=== PATIENT | male | born 1965 | race Caucasian/White ===

== ENCOUNTER 2023-12-11 13:54 | Outpatient (RCR) | payer OTHER, SELFPAY ==
[2023-12-11] MEDS: NSS 250 IV (14:16)
[2023-12-11 14:22] VITALS: BP 152/75
[2023-12-11] MEDS: ENTYVIO 255 MG IV (14:34)
== END 2023-12-12 08:56 | disposition home or self-care (01) ==
LOC: OID 13:54
PROVIDERS: ATTENDING PHYSICIAN Internal Medicine Gastroenterology
DX: K50.10 Crohn's disease of large intestine without complications (principal); N18.6 End stage renal disease; Z94.0 Kidney transplant status; Z79.899 Other long term (current) drug therapy
CPT/HCPCS: 96361; 96365; J3380

== ENCOUNTER 2024-02-07 13:49 | Outpatient (RCR) | payer OTHER, SELFPAY ==
[2024-02-07 14:00] VITALS: BP 151/95
[2024-02-07] MEDS: NSS 250 IV (14:21)
[2024-02-07] MEDS: ENTYVIO 255 MG IV (14:25)
[2024-02-07 16:21] VITALS: BMI 29.9
== END 2024-02-08 09:50 | disposition home or self-care (01) ==
LOC: OID 13:49
PROVIDERS: ATTENDING PHYSICIAN Internal Medicine Gastroenterology
DX: K50.90 Crohn's disease, unspecified, without complications (principal); N18.6 End stage renal disease; K50.10 Crohn's disease of large intestine without complications; Z94.0 Kidney transplant status; Z79.899 Other long term (current) drug therapy
CPT/HCPCS: 96361; 96365; J3380

== ENCOUNTER → 2024-02-14 20:12 | Outpatient (REF) | payer OTHER, SELFPAY | LOC: MRI 3T 20:12 | PROVIDERS: ATTENDING PHYSICIAN Specialist | DX: R97.20 Elevated prostate specific antigen [PSA] (principal) | CPT/HCPCS: 72197; A9585 ==

== ENCOUNTER 2024-04-03 13:42 | Outpatient (RCR) | payer OTHER, SELFPAY ==
[2024-04-03] MEDS: ENTYVIO 255 MG IV (14:06)
[2024-04-03] MEDS: NSS 250 IV (14:06)
[2024-04-03 14:18] VITALS: BP 131/79
== END 2024-04-04 10:40 | disposition home or self-care (01) ==
LOC: OID 13:42
PROVIDERS: ATTENDING PHYSICIAN Internal Medicine Gastroenterology
DX: K50.90 Crohn's disease, unspecified, without complications (principal); N18.6 End stage renal disease; K50.10 Crohn's disease of large intestine without complications; Z94.0 Kidney transplant status; Z79.899 Other long term (current) drug therapy
CPT/HCPCS: 96365; J3380

== ENCOUNTER 2024-05-29 13:43 | Outpatient (RCR) | payer OTHER, SELFPAY ==
[2024-05-29 13:55] VITALS: BP 154/86
[2024-05-29] MEDS: ENTYVIO 255 MG IV (14:16)
[2024-05-29] MEDS: NSS 250 IV (14:16)
== END 2024-05-30 08:23 | disposition home or self-care (01) ==
LOC: OID 13:43
PROVIDERS: ATTENDING PHYSICIAN Internal Medicine Gastroenterology
DX: K50.90 Crohn's disease, unspecified, without complications (principal); N18.6 End stage renal disease; K50.10 Crohn's disease of large intestine without complications; Z94.0 Kidney transplant status; Z79.899 Other long term (current) drug therapy
CPT/HCPCS: 96361; 96365; J3380

== ENCOUNTER 2024-07-24 13:24 | Outpatient (RCR) | payer OTHER, SELFPAY ==
[2024-07-24 13:33] VITALS: BP 144/80
[2024-07-24] MEDS: ENTYVIO 255 MG IV (13:47)
[2024-07-24] MEDS: NSS 250 IV (13:47)
== END 2024-07-25 09:13 | disposition home or self-care (01) ==
LOC: OID 13:24
PROVIDERS: ATTENDING PHYSICIAN Internal Medicine Gastroenterology
DX: K50.90 Crohn's disease, unspecified, without complications (principal); N18.6 End stage renal disease; K50.10 Crohn's disease of large intestine without complications; Z94.0 Kidney transplant status; Z79.899 Other long term (current) drug therapy
CPT/HCPCS: 96365; J3380

== ENCOUNTER 2024-09-18 13:38 | Outpatient (RCR) | payer OTHER, SELFPAY ==
[2024-09-18] MEDS: ENTYVIO 255 MG IV (14:06)
[2024-09-18] MEDS: NSS 250 IV (14:06)
[2024-09-18 14:17] VITALS: BP 140/82
== END 2024-09-19 09:20 | disposition home or self-care (01) ==
LOC: OID 13:38
PROVIDERS: ATTENDING PHYSICIAN Internal Medicine Gastroenterology
DX: K50.90 Crohn's disease, unspecified, without complications (principal); N18.6 End stage renal disease; K50.10 Crohn's disease of large intestine without complications; Z94.0 Kidney transplant status; Z79.899 Other long term (current) drug therapy
CPT/HCPCS: 96360; 96361; 96365; J3380

== ENCOUNTER 2024-11-13 13:43 | Outpatient (RCR) | payer OTHER, SELFPAY ==
[2024-11-13 13:45] VITALS: BP 141/76
[2024-11-13] MEDS: ENTYVIO 255 MG IV (14:21)
[2024-11-13] MEDS: NSS 250 IV (14:21)
== END 2024-11-14 09:34 | disposition home or self-care (01) ==
LOC: OID 13:43
PROVIDERS: ATTENDING PHYSICIAN Internal Medicine Gastroenterology
DX: K50.90 Crohn's disease, unspecified, without complications (principal); N18.6 End stage renal disease; K50.10 Crohn's disease of large intestine without complications; Z94.0 Kidney transplant status; Z79.899 Other long term (current) drug therapy
CPT/HCPCS: 96361; 96365; J3380

== ENCOUNTER 2024-12-10 00:19 | Observation (INO) | payer OTHER, SELFPAY ==
[2024-12-09 19:50] VITALS: BP 121/84
[2024-12-09 20:12] LABS: % Basophils 0.2 % (0-2); % Eosinophils 0.2 % (0-6); % Immature Granulocytes 0.7 % (0-0.5); % Lymphocytes 34.8 % (20.5-51.1); % Monocytes 8.4 % (1.7-9.3); % Neutrophils 55.7 % (42.2-75.2); Absolute Lymphocytes 1.9 10^3/uL (1.2-3.4); Absolute Monocytes 0.5 10^3/uL (0.1-0.6); Hematocrit 28.2 % (39.0-52.0); Hemoglobin 9.8 g/dL (13.0-18.0); Mean Corp Hgb Conc. 34.8 g/dL (33.0-37.0); Mean Corpuscular Hgb 30.3 pg (27.0-31.0); Mean Corpuscular Volume 87.3 fL (80.0-94.0); Mean Platelet Volume 9.1 fL (7.4-10.4); Nucleated Red Blood Cells % 0 % (-); Platelet Count 195 10^3/uL (130-400); Red Blood Cell Count 3.23 10^6/uL (4.70-6.10); Red Cell Dist. Width 12.3 % (11.5-14.5); White Blood Cell Count 5.5 10^3/uL (4.8-10.8)
[2024-12-09 20:25] LABS: ALT (SGPT) 21 U/L (0-50); AST (SGOT) 27 U/L (17-59); Alkaline Phosphatase 85 U/L (38-126); Blood Urea Nitrogen 55 mg/dl (9-20); Calcium 8.9 mg/dl (8.4-10.2); Carbon Dioxide 21 mmol/L (22-30); Chloride 100 mmol/L (98-107); Glucose 220 mg/dl (70-99); Potassium 4.7 mmol/L (3.5-5.1); Sodium 132 mmol/L (135-145); Total Bilirubin 0.5 mg/dl (0.2-1.3); Total Protein 6.5 g/dl (6.3-8.2); eGFR 28.52
[2024-12-09 20:28] LABS: COVID-19 Antigen Negative (Negative)
--- NOTE | 2024-12-09 21:27 | ED.GENMED ---
History of Present Illness
General
Chief Complaint: Cold/Flu/URI Symptoms
Time Seen by Provider: 12/09/24 21:26
History of Present Illness
History of Present Illness:
TIME OF INITIAL ENCOUNTER: 9:40 PM
HPI: The patient presents with general unwell feeling, fatigue, some degree of shortness of breath, and chills. He has a history of renal transplant versus risk in 2007 and is more recently been managed for prostate cancer. He had COVID over a
month ago and then 2 weeks ago developed URI symptoms along with the other symptoms listed above. He had outpatient blood work that showed a lower than normal hemoglobin with low iron levels and was sent here for further evaluation.
EXAM:
GENERAL: Appears generally weak and debilitated, room air sats 98% with good waveform
HEENT: Slightly dry oral mucosa
CARDIOVASCULAR: No murmurs, normal heart rate, regular rhythm, No chest wall tenderness
PULMONARY: No respiratory distress, breath sounds are clear and equal
ABDOMEN: Soft with no peritoneal signs, no tenderness
NEUROLOGIC: Fair strength all extremities, no coordination deficits
PSYCHIATRIC: Appropriate mental status, normal insight and judgement
EXTREMITIES: Nontender, no edema, moves all extremities equally
SKIN: No rash, no lesions
NUMBER AND COMPLEXITY OF PROBLEMS ADDRESSED AT THE ENCOUNTER
� Chronic conditions affecting care: Kidney transplant, prostate cancer, high blood pressure, Crohn's, 'steroid-induced diabetes'
� Acute Exacerbation and/or Progression of Chronic Illness: This is an acute problem
� Differential Diagnosis includes: viral syndrome, bacteremia, pneumonia,Anemia
AMOUNT AND/OR COMPLEXITY OF DATA TO BE REVIEWED AND ANALYZED
� I performed an independent evaluation of and my interpretation is:
EKG:
CT:
X-rays: I personally viewed chest x-ray and see no clear sign of pneumonia
Laboratory Studies: White count 5.5, hemoglobin 9.8, BUN 55, creatinine 2.5, urinalysis shows no sign of infection, lactic 1.5
Other:
� Review of other/old records: Creatinine in 2022 was 1.5, hemoglobin was 11.1 in January 2023
� Clinical information was obtained by an independent historian: I spoke to at bedside
� Prescriptions/Medications Considered but not given:
� Further testing considered but not performed:
RISK OF COMPLICATIONS AND/OR MORBIDITY OR MORTALITY OF PATIENT MANAGEMENT
� Social determinants of health affecting care: Lives at home.
� Discussion with other providers: Hospitalist, Dr. Aldana, for admission at 11:25 PM
� Escalation of care including admission/observation vs risk of discharge considered: The patient is slightly more anemic than prior. Renal function is elevated but states is near his recent baseline of about 2.3. I reviewed
the blood work from 12/05/2024 that showed a normal ferritin at 203, low total iron of 17, TIBC normal at 270, low percent iron saturation at 6, normal B12, creatinine was 2.52, hemoglobin 9.6, QuantiFERON negative. The patient is given IV fluids.
ANY OTHER UPDATES:
11:10 PM: Patient was given IV fluids but still remains to feel rather weak and unwell. remains very concerned. Will plan to keep him in the hospital for further evaluation management.
Past History
Past History
ED Past Medical History: HTN, Hypercholesterolemia, NIDDM and Other (Transplant patient Crohn's IBS)
ED Past Surgical History: Other (Renal transplant)
Social History
Tobacco: Non-smoker
Alcohol: Occasional
Drug: None
Personal:
Living: with family
Employment: Employed
Family History
Family History: Other (Noncontributory)
Phy Exam
Physical Exam
Physical Exam:
See HPI
Course
Orders/Labs/Results
Orders:
Orders
12/09/24 19:55
CR Chest - 2 Views Urgent
Comment:
Reason For Exam: Cough, no improvement with antibiotics
12/09/24 20:01
COVID-19 Antigen Urgent
Source: Nasal Swab
Complete Blood Count/With Diff Urgent
Comprehensive Metabolic Panel Urgent
Influenza A+B Rapid Molecular Urgent
OPHELIA Source: Nasal Swab
Specimen Description:
12/09/24 21:48
0.9% Sodium Chloride 1000 ml [Nss] 1,000 ml IV BOLUS
12/09/24 22:07
Lactic Acid Q4H
Comment: CANCEL 2nd LACTIC ACID IF 1st LACTIC ACID IS LESS THAN 2
Blood Culture Q30M
OPHELIA Source: Blood/Venous
Specimen Description:
12/09/24 22:53
Urinalysis Reflex To Culture Urgent
Date Specimen was Collected: 12/09/24
Time Specimen was Collected: 22:16
Urine Microscopic Reflex Cult Urgent
Blood Culture Q30M
OPHELIA Source: Blood/Venous
Specimen Description:
12/10/24 00:02
Admit/Transfer Patient As Directed
Co-Sign Provider:
Level of Care: Observation services
Assign to:: Medical/Surgical
Physician / Group: hospitalist
Diagnosis: iron deficiency
PRN Pain Medication Management As Directed
May give lesser potent ordered pain med per pt: Yes
preference::
Protocol:: Medication orders for pain may be administered in a
manner that supports deferring to patient preference
when the pt is:
- Requesting an ordered lesser potent pain medication.
Least to most potent pain medications are defined
as: acetaminophen < NSAID < tramadol < opioids
(morphine, oxycodone, hydromorphone).
- Requesting a lesser dose of the same medication IF
ORDERED.
- Requesting a less intrusive route of administration
if both routes are prescribed by the provider (PO <
IV).
12/10/24 00:04
Code Status As Directed
Resuscitation Status: Full Code
12/10/24 02:00
Lactic Acid Q4H
Comment: CANCEL 2nd LACTIC ACID IF 1st LACTIC ACID IS LESS THAN 2
Abnormal Lab Results
12/09/24 12/09/24
20:01 22:53
RBC 3.23 L 10^6/uL
(4.70-6.10)
Hgb 9.8 L g/dL
(13.0-18.0)
Hct 28.2 L %
(39.0-52.0)
Immature Gran % 0.7 H %
(0-0.5)
Sodium 132 L mmol/L
(135-145)
Carbon Dioxide 21 L mmol/L
(22-30)
BUN 55 H mg/dl
(9-20)
Creatinine 2.5 H mg/dL
(0.7-1.3)
Glucose 220 H mg/dl
(70-99)
Urine Albumin (Reflex) 3+ A
(Neg - Trace)
12/09/24 20:01
12/09/24 20:01
Vital Signs
Initial and Last Documented VS:
Initial Vital Signs
Temp Pulse Resp BP Pulse Ox
36.7 C 74 17 121/84 88
12/09/24 19:50 12/09/24 19:50 12/09/24 19:50 12/09/24 19:50 12/09/24 19:50
Last Documented Vital Signs
Temp Pulse Resp BP Pulse Ox
37.2 C 70 20 135/90 97
12/09/24 23:05 12/09/24 23:05 12/09/24 23:05 12/09/24 23:05 12/09/24 23:05
*Critical Care Note
Total Time (30-74mins, 75-104mins- exclusive of procedures): Not Applicable
ED Attending Note
-
Portions of this chart may have been created with voice recognition software.� Occasional wrong word or��sound alike� substitutions may have occurred due to the inherent limitations of voice recognition software.
Discharge Plan
Departure
Patient Disposition: Admit
Date of Disposition: 12/09/24
Time of Disposition: 23:26
Presentation/result/management discussed w/ accepting MD/DO: Hospitalist
Discharge Problem:
Weakness
Interventions
Interventions:
*Risk Screen - Suicide Last Done: 12/09/24 19:55
*General Assessment Last Done: 12/09/24 19:55
*Neglect/Abuse Screening Last Done: 12/09/24 19:55
ED- Fall Risk Assessment Last Done: 12/09/24 22:12
*ED COVID-19 Vaccine History Last Done: 12/09/24 19:55
ED- Pulmonary Assessment Last Done: 12/09/24 22:12
[2024-12-09 21:38] VITALS: BMI 29.9
[2024-12-09] MEDS: NSS 1000 IV (22:19)
[2024-12-09 22:27] LABS: Lactic Acid 1.5 mmol/L (0.7-2.0)
[2024-12-09 23:03] LABS: Urine Albumin 3+ (Neg - Trace); Urine Bilirubin Negative (Negative); Urine Character Clear (Clear); Urine Color Yellow; Urine Glucose Negative (Negative); Urine Ketone Negative (Negative); Urine Leukocyte Negative (Negative); Urine Nitrite Negative (Negative); Urine Occult Blood Negative (Negative); Urine Specific Gravity 1.015 (<1.030); Urine Urobilinogen Negative (Neg - 1+)
[2024-12-09 23:05] VITALS: BP 135/90
[2024-12-09 23:14] LABS: Urine Red Blood Cell 0-2 /HPF (0-2); Urine White Cell 0-2 /HPF (0-5)
--- NOTE | 2024-12-09 23:50 | HPS.HSE ---
Family Physician
-
Family Physician: Shine Mcgrath
Chief Complaint
-
URI symptoms and weakness
History of Present Illness
This is a 59-year-old male who has a past medical history significant for end-stage renal disease with. Kidney transplantation at age 27, second transplantation in 2007, on chronic antirejection, recent history of prostate cancer status post
radiation and currently on Eligard, Crohn's disease 6 currently in remission, hypertension, CKD with baseline creatinine of around 1.5 [id number] diabetes on Ozempic who presents to the emergency department with 2 weeks of URI symptoms
not improved after trial of oral antibiotics.
Patient reported that since he started on the Eligard he has been having intermittent rigors chills and sweats. This is thought to be secondary to the side effect of the Eligard. In addition to this discomfort more recently is reported some mild
headache and upper respiratory symptoms with a mild cough and nasal drip as well as mild congestion. He denies a sinus headache. He denies having fevers. He denies shortness of breath at rest. He denies a any orthopnea or PND. He reports
fatigue has also been going on for about 2 weeks. He denies any exertional chest pain, pleuritic chest pain, lower extremity swelling or calf tenderness. He has no recent travels.
He completed a 4-day course of azithromycin and stated that his symptoms are not improved. He saw his physician on Sunday we did some blood work. Was noted to have a significant iron deficiency as well as anemia with a hemoglobin of around 9.6 at
that time. He denies having any melena. He denies any medic easier. His last colonoscopy was a year ago without any abnormalities. He states his Crohn's is in remission. He denies any NSAIDs or aspirin.
In the emergency department he was afebrile blood pressure was 135/90 with a pulse of 70. He is satting 100% on room air. Influenza test was negative. COVID test was negative. UA shows 3+ albumin but otherwise unremarkable. Chest x-ray was
clear. A CBC was unremarkable except for a hemoglobin of 9.8. Sodium was 132, potassium was 4.1, BUN 55 creatinine 2.5.
Medical History
Past Medical History
Past Medical History: Reports Cancer (Prostate cancer status post chemo and radiation currently on Eligard), GERD, Hypercholesterolemia, NIDDM, Renal Failure (End-stage renal disease status post kidney transplant, last transplant 2007 baseline
creatinine 1.5) and Other (Crohn's disease)
Past Surgical History: Reports Other (Kidney transplant)
Social History
Tobacco: Non-smoker
Alcohol: None
Drug: None
Personal:
Living: With Family
Family History
Family History: Not pertinent
Allergies / Home Medications
Allergies reflects when Allergies were last updated in [facility].
Home Medications with original date entered in [facility]
Allergy/Medication List:
Allergies
Allergy/AdvReac Type Severity Reaction Status Date / Time
Sulfa (Sulfonamide Allergy Severe Unknown Verified 12/09/24 19:53
Antibiotics)
sulfisoxazole Allergy Severe Unknown Verified 12/09/24 19:53
Home Medications
atorvastatin 10 mg tablet (Lipitor) 20 mg PO HS High cholesterol 11/08/17
cholecalciferol (vitamin D3) 25 mcg (1,000 unit) capsule (Vitamin D3) 1,000 unit PO DAILY Supplement 11/08/17
metoprolol succinate 50 mg tablet,extended release 24 hr 100 mg PO BID Heart disease/condition 11/08/17
prednisone 5 mg tablet 5 mg PO DAILY Chron's 11/08/17
vedolizumab 300 mg intravenous solution (Entyvio) 300 mg IV Q8W chron's 10/14/18
hydralazine 100 mg tablet 100 mg PO TID Blood pressure 04/14/21
B-complex with vitamin C 1 cap PO DAILY Supplement 08/29/22
magnesium 250 mg tablet 250 mg PO HS Supplement 08/29/22
acetaminophen 325 mg tablet (Tylenol) 325 mg PO Q4H PRN mild pain 01/18/23
chlorthalidone 25 mg tablet 25 mg PO DAILY Blood pressure 01/18/23
mycophenolate mofetil 500 mg tablet 500 mg PO BID 01/18/23
therapeutic multivitamin 1 tab PO DAILY Supplement 01/18/23
turmeric 400 mg capsule 400 mg PO DAILY 01/18/23
zinc acetate 50 mg (zinc) capsule 50 mg PO QPM Supplement 01/18/23
doxazosin 2 mg tablet 4 mg PO HS 08/21/23
tacrolimus 1 mg capsule, immediate-release 3 mg PO BID 04/03/24
leuprolide (3 month) 22.5 mg (3 month) subcutaneous syringe (Eligard) 22.5 mg SC [id number] 07/24/24
semaglutide 1 mg/dose (4 mg/3 mL) subcutaneous pen injector (Ozempic) 1 mg SC .Sundays07/24/24
Review of Systems
-
History Source: Patient
Constitutional: Reports Fatigue and Chills
EENT: Reports No Symptoms
Respiratory: Reports Cough
Cardiac: Reports No Symptoms
Abdomen/GI: Reports No Symptoms
: Reports No Symptoms
Musculoskeletal: Reports No Symptoms
Skin: Reports No Symptoms
Endocrine: Reports No Symptoms
Hematologic/Lymphatic: Reports No Symptoms
Psych: Reports No Symptoms
Physical Exam
Vital Signs
Vital Signs
Temp Pulse Resp BP Pulse Ox
98.9 F 70 20 135/90 97
12/09/24 23:05 12/09/24 23:05 12/09/24 23:05 12/09/24 23:05 12/09/24 23:05
Physical Exam
General: No Apparent Distress, Comfortable and Conversant
HEENT: NormoCephalic, Anicteric, Moist mucous membranes and Atraumatic
Respiratory: Clear
Cardiac: S1/S2 and Regular Rhythm
Breast: Deferred by me
GI: Soft, Non Tender, Non Distended and Normal Bowel Sounds
Rectal: Deferred by Provider
Genito-urinary: Deferred by me
Musculoskeletal: No Clubbing, No Cyanosis and No Edema
Skin: Warm
Neuro: AO x 3 and Nonfocal/grossly intact
Hematologic/Lymphatic: No Lymphadenopathy
Psych: Calm
Laboratory Results
-
12/09/24 20:01
12/09/24 20:
Laboratory Results
Lactic Acid 1.5 mmol/L (0.7-2.0) 12/09/24 22:07
Total Bilirubin 0.5 mg/dl (0.2-1.3) 12/09/24 20:
AST 27 U/L (17-59) 12/09/24 20:01
ALT 21 U/L (0-50) 12/09/24 20:01
Alkaline Phosphatase 85 U/L (38-126) 12/09/24 20:01
Data Reviewed
-
Diagnostic Radiology: Image Personally Visualized and interpreted
Lab Data: Labs Reviewed by me
Old Records: Reviewed
Impression/Plan
-
IMPRESSION:
59-year-old with malaise, fatigue, recent URI status post azithromycin treatment, here with anemia and found to be severely iron deficient on labs 3 days ago. No obvious infectious source. COVID-negative, influenza negative, chest x-ray clear, UA
negative, lactic acid normal. Labs remarkable for a creatinine of 2.5 and a BUN of 55. Hemoglobin is 9.8. No leukocytosis and normal platelets. He does not appear in any kind of CHF.
PLAN:
1. URI - No acute bacterial infection. symptoms ongoing for 2 weeks and s/p azithromycin w/o improvement. Possibly sinusitis
- admit to med/surg obs
- blood cultures sent and pending
- s/p abx
2. Renal failure - Cr 2.5, patient stated as been around 2 lately. Was 1.5 in 2022. BUN 55.
- continue cellcept, tac and prednisone
- check tac level
- iv fluids overnight
- avoid nephrotoxins
- consider nephrology consult
3. Anemia - Iron deficiency noted on home labs, sat 6%, level 17
- Iron infusion tomorrow in setting of negative infectious w/u
- had recent outpatient colonoscopic 1 year ago
4. Crohns - stable
5. HTN
- continue metoprolol, hydralazine and doxazosin
DVT PPX - heparin sq
Code status - full
[2024-12-10] VITALS (9 sets, daily range): BP systolic 134–184; BP diastolic 91–118
[2024-12-10] MEDS: APRESOLINE 100 MG PO ×2 (03:02→08:55)
[2024-12-10] MEDS: TOPROL XL 100 MG PO ×2 (03:03→08:54)
[2024-12-10] MEDS: CARDURA 4 MG PO (03:12)
[2024-12-10] MEDS: CELLCEPT 500 MG PO ×2 (03:12→09:32)
[2024-12-10] MEDS: PROGRAF 1.5 MG PO ×2 (03:13→09:33)
[2024-12-10] MEDS: NSS IV (04:56)
[2024-12-10 06:31] LABS: Mean Corp Hgb Conc. 34.6 g/dL (33.0-37.0); Mean Corpuscular Hgb 30.1 pg (27.0-31.0); Mean Platelet Volume 9.3 fL (7.4-10.4); Platelet Count 181 10^3/uL (130-400); Red Blood Cell Count 2.99 10^6/uL (4.70-6.10); Red Cell Dist. Width 12.3 % (11.5-14.5); White Blood Cell Count 4.5 10^3/uL (4.8-10.8)
[2024-12-10] MEDS: NSS 1000 IV (06:32)
[2024-12-10 06:45] LABS: Blood Urea Nitrogen 49 mg/dl (9-20); Calcium 8.7 mg/dl (8.4-10.2); Carbon Dioxide 20 mmol/L (22-30); Chloride 107 mmol/L (98-107); Creatine Phosphokinase 59 U/L (55-170); Estimated Creatinine Clearance 39 ml/min; Glucose 117 mg/dl (70-99); Lipase 402 U/L (23-300); Potassium 4.3 mmol/L (3.5-5.1); Sodium 137 mmol/L (135-145); eGFR 33.24
[2024-12-10 07:16] LABS: TSH 1.02 uIU/ml (0.47-4.68)
[2024-12-10 07:35] LABS: Vitamin B12 986 pg/ml (239-931)
--- NOTE | 2024-12-10 08:29 | W.PN.HOSP.TC ---
Addendum entered and electronically signed by Katarina Alcantar MD 12/10/24 10:25:
d/w renal Dr Gallardo, since pt would like to go home, OK for discharge
Informed pt to check CBC in 1 week with PCP/renal.
total DC time 40 min
Original Note:
Today's Communication/Plan
-
see A/P
Assessment / Plan
Assessment / Plan
HPI: 59-year-old male past medical history significant for end-stage renal disease with Kidney transplantation at age 27, second transplantation in 2007, on chronic antirejection, recent history of prostate cancer status post radiation and currently
on Eligard, Crohn's disease currently in remission, hypertension, CKD with baseline creatinine of around 1.5, [id number]-[id number] diabetes on Ozempic; who presented with 2 weeks of URI symptoms not improved after trial of oral antibiotics.
Patient reported that since he started on the Eligard he has been having intermittent rigors chills and sweats. This was thought to be secondary to the side effect of the Eligard. Also reported some mild headache and upper respiratory symptoms with
a mild cough and nasal drip as well as mild congestion.
He completed a 4-day course of azithromycin and his symptoms did not improved.
He saw his physician and did some blood work. He was noted to have iron deficiency anemia (hemoglobin of around 9.6). He denies melena. His last colonoscopy was a year ago without any abnormalities. He states his Crohn's is in remission. He denies
any NSAIDs or aspirin.
A/P:
# recent URI symptoms ~2 weeks [employer]
s/p azithromycin
Follow blood cultures, Check CRP
Currently with minimal resp symptoms, trial of Duoneb PRN for symptomatic relief. Pt declined Mucinex
# Renal failure, h/o kidney transplant
Cr 2.5 on admission, from baseline 1.5
continue cellcept, tac and prednisone
Follow tac level
started iv fluids, hold further after current bag
avoid nephrotoxins, consider holding [employer] chlorthalidone after IVF
nephrology consult
# Anemia, possible S/E of Eligard and now dilutional effect
Ferritin 200, B12 WNL at 900
Check TIBC, iron level
IV iron x1 ordered from admission
Of note, pt had recent outpatient colonoscopic 1 year ago
Hgb at 9.0 today, cont to trend, consider GI eval if Hgb drops further
# Crohns - stable
# HTN
continue [employer] metoprolol, hydralazine, doxazosin, chlorthalidone with holding parameter
# recent history of prostate cancer status post radiation and currently on Eligard
DVT PPX - heparin SQ
Code status - full
DW RN
DW on the phone
total time spent 51 min
Anticipated Discharge: 24 - 48 hours
Subjective/Interval History
-
Date of Service: December 10, 2024
Objective Data
-
Labs:
Laboratory Results
12/10/24
06:16
WBC 4.5 L
Hgb 9.0 L
Hct 26.0 L
Plt Count 181
Sodium 137
Potassium 4.3
Chloride 107
Carbon Dioxide 20 L
BUN 49 H
Creatinine 2.2 H
Glucose 117 H
Calcium 8.7
Vital Signs:
Vital Signs
Temp Pulse Resp BP Pulse Ox
37.2 C 70 12 181/110 96
12/09/24 23:05 12/10/24 03:12 12/10/24 02:04 12/10/24 03:12 12/10/24 02:04
Review of Systems
-
All other systems: Reviewed and negative
Respiratory: Denies Cough or Trouble Breathing
Physical Exam
-
General: Well Developed, Well Nourished, No Apparent Distress, Comfortable and Conversant
HEENT: Normocephalic and Atraumatic
Respiratory: Clear to Auscultation and Non Labored Respirations; Negative Accessory Resp Muscle Use
Cardiac: Regular Rhythm and S1/S2
GI: Soft, Nontender, Nondistended and Normal Bowel Sounds
Skin: Warm
Neuro: Awake and Alert
Psych: Calm and Intact Judgement/Insight
Data Reviewed
-
Labs: Labs Reviewed by me
[2024-12-10] MEDS: THERAGRAN 1 TABLET PO (08:54)
[2024-12-10] MEDS: VITAMIN D3 (cholecalciferol) 25 MCG PO (08:54)
[2024-12-10] MEDS: Hygroton 25 MG PO (08:56)
--- NOTE | 2024-12-10 09:07 | W.CON.NEPH ---
Consultation
-
Date/Time Consultation Requested: 12/10/24 0759
Date/Time Consultation Performed: 12/10/24929
Requesting Provider: Katarina Casper
Performing Provider: Magda Galvan
Reason for Consultation: CKD, h/o KTP
Medical History
-
Chief Complaint: Weakness and URI symp
History of Present Illness:
59-year-old male who has Childhood glomerulonephritis diagnosed with a biopsy status post left iliac side kidney transplant in 1996 that failed in subsequently had a second renal transplant in 2007 on the left side. Follows with Dr George,
baseline creatinine at 2.1-2.6 and known history of proteinuria but not tolerated ACEI, SGLT2I with elevated creatinine, tolerating Ozempic. Maintained on immunosuppression with tacrolimus, CellCept, prednisone. He also has history of
hypertension on multiple medications includes chlorthalidone, doxazosin, hydralazine and metoprolol. Recent history of prostate cancer status post radiation and currently on Eligard, Crohn's disease currently in remission, [id number]-[id number]
diabetes who presents to the emergency department on 12/09 with 2 weeks of URI symptoms not improved after trial of oral antibiotics. He thinks Since starting ELigard he has the side effects-chills, sweating, weakness , wt gain etc. He supposed to
be on it for 1yr and he completed almost 6 months now. He has appointment with [facility] tomorrow and he wants to get discharge today. NO CP or sob, no abd pain or n/v. no dysuria.
He reportedly completed 4 days of azithromycin to PCP however with no improvement. He recently noted Iron deficiency anemia. He notes last Tac level was in 3 range and has plan to repeat in 2weeks in out pt setting.
In the ER hemoglobin of 9.8. Sodium was 132, potassium was 4.1, BUN 55 creatinine 2.5. CXR neg. TOday hb at 9, cr 2.2.
Nephrology was consulted for KTP status and CKD.
Past Medical History
1. Crohn's disease.
2. CKD 3.
3. Hypertension.
4. Diabetes mellitus, type 2.
5. Renal transplant, 1996.
6. Renal transplant, 2007 for glomerulonephritis.
Prostate cancer status post chemo and radiation currently on Eligard
GERD
Hypercholesterolemia
Past Surgical History: Other (K transplant)
Social History
Tobacco: Non-Smoker
Alcohol: None
Drug: None
Personal:
Living: With Family
Family History
no CKD
Family History: Not Pertinent
Allergies / Home Medications
Allergy/AdvReac Type Severity Reaction Status Date / Time
Sulfa (Sulfonamide Allergy Severe Unknown Verified 12/09/24 19:53
Antibiotics)
sulfisoxazole Allergy Severe Unknown Verified 12/09/24 19:53
�Medication �Instructions �Recorded �Confirmed �Type
cholecalciferol (vitamin D3) 25 1,000 unit PO DAILY Supplement 11/08/17 12/10/24 History
mcg (1,000 unit) capsule (Vitamin
D3)
prednisone 5 mg tablet 5 mg PO DAILY Chron's 11/08/17 12/10/24 History
vedolizumab 300 mg intravenous 300 mg IV Q8W chron's 10/14/18 12/10/24 History
solution (Entyvio)
hydralazine 100 mg tablet 100 mg PO BID Blood pressure 04/14/21 12/10/24 History
B-complex with vitamin C 1 cap PO DAILY Supplement 08/29/22 12/10/24 History
magnesium 250 mg tablet 250 mg PO HS Supplement 08/29/22 12/10/24 History
acetaminophen 325 mg tablet 325 mg PO Q4HPRN PRN mild pain 01/18/23 12/10/24 History
(Tylenol)
chlorthalidone 25 mg tablet 25 mg PO DAILY Blood pressure 01/18/23 12/10/24 History
mycophenolate mofetil 500 mg tablet 500 mg PO BID 01/18/23 12/10/24 History
therapeutic multivitamin 1 tab PO DAILY Supplement 01/18/23 12/10/24 History
turmeric 400 mg capsule 400 mg PO DAILY 01/18/23 12/10/24 History
zinc acetate 50 mg (zinc) capsule 50 mg PO QPM Supplement 01/18/23 12/10/24 History
tacrolimus 1 mg capsule, 3 mg PO BID 04/03/24 12/10/24 History
immediate-release
leuprolide (3 month) 22.5 mg (3 22.5 mg SC [id number] 07/24/24 12/10/24 History
month) subcutaneous syringe
(Eligard)
semaglutide 1 mg/dose (4 mg/3 mL) 1 mg SC MARTINEZ 07/24/24 12/10/24 History
subcutaneous pen injector (Ozempic)
atorvastatin 20 mg tablet (Lipitor) 20 mg PO HS 12/10/24 12/10/24 History
doxazosin 4 mg tablet 4 mg PO HS 12/10/24 12/10/24 History
metoprolol succinate 100 mg 100 mg PO BID 12/10/24 12/10/24 History
tablet,extended release 24 hr
(Toprol XL)
Review of Systems
-
All complete 12 point ROS have been inquired and found negative other than stated in HPI
Physical Exam
Vital Signs
Vital Signs
Temp Pulse Resp BP Pulse Ox
98.9 F 70 12 181/110 96
12/09/24 23:05 12/10/24 03:12 12/10/24 02:04 12/10/24 03:12 12/10/24 02:04
Lab Results
WBC 4.5 10^3/uL (4.8-10.8) L 12/10/24 06:16
RBC 2.99 10^6/uL (4.70-6.10) L 12/10/24 06:16
Hgb 9.0 g/dL (13.0-18.0) L 12/10/24 06:16
Hct 26.0 % (39.0-52.0) L 12/10/24 06:16
Plt Count 181 10^3/uL (130-400) 12/10/24 06:16
Sodium 137 mmol/L (135-145) 12/10/24 06:16
Potassium 4.3 mmol/L (3.5-5.1) 12/10/24 06:16
Chloride 107 mmol/L (98-107) 12/10/24 06:16
Carbon Dioxide 20 mmol/L (22-30) L 12/10/24 06:16
BUN 49 mg/dl (9-20) H 12/10/24 06:16
Creatinine 2.2 mg/dL (0.7-1.3) H 12/10/24 06:16
eGFR 33.24 12/10/24 06:16
Glucose 117 mg/dl (70-99) H 12/10/24 06:16
Calcium 8.7 mg/dl (8.4-10.2) 12/10/24 06:16
Albumin 4.0 g/dl (3.5-5.0) 12/09/24 20:01
Physical Exam
General: Awake, Alert, Oriented, AOx3, No Distress and Nontoxic
HEENT: EOMI, Anicteric, Conjunctivae Clear, Facial Symmetry and No JVD
Respiratory: Clear, Normal Excursion and Nonlabored Respirations
Cardiac: S1/S2 and Regular Rate/Rhythm
Breast: Deferred by me
Abdomen: Soft, Nontender and Nondistended
Musculoskeletal: No Cyanosis and No Edema
Skin: No Rash and Warm
Neuro: Nonfocal/Grossly Intact
Psych: Mood/afflect pleasant, Insight/judgement good and Appropriate
Data Reviewed
-
Radiology: Report Reviewed by me and Discussed with Patient
Labs: Labs Reviewed by me and Discussed with Patient
Assessment/Plan
-
IMP:
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
CKD3b
h/o kidney transplantx2 1996 and 2007(childhood GN)
Anemia
Crohns
HTN
recent history of prostate cancer status post radiation and currently on Eligard
Proteinuria
Plan:
A/w URI symp 2weeks
renal function seem stable baseline
proteinuria is known and did not tolerate ACEI or SGLT2I
Azithromycin interacts with Tac and raises levels -check Tac level -pending
no further Azithro. cont IS meds for now
BP high-resume home meds
monitor h/h, await fe sat, ferritin normal
He asking to be discharged today so he can get to his [facility] appointment tomorrow as he thinks symp are from [facility]
no objection from renal stand point
He will see DR George as scheduled and also has labs to be done out pt
Notified primary
[2024-12-10 09:16] LABS: C-Reactive Protein < 5.00 mg/L (0.0-10.00)
[2024-12-10] MEDS: DELTASONE 5 MG PO (09:32)
[2024-12-10 10:52] LABS: Iron 91 ug/dl (49-181)
[2024-12-10 11:01] LABS: Percent Saturation 35 % (20-50); Total Iron Binding Capacity 258 ug/dl (261-462)
[2024-12-10] MEDS: FERRLECIT 110 MG IV (11:09)
--- NOTE | 2024-12-10 11:57 | PTOTSP ---
chart reviewed, spoke with pt. reports feeling fatigued, though does not need therapy intervention. will sign off per pt request. RN updated.
--- NOTE | 2024-12-10 12:08 | CM ---
CM consult for discharge planning for Stanton in ED. CM spoke with his who reports at baseline, Stanton is (I) amb and adls, very active. He has multiple medical issues, recent covid around [place], and per his , he 'has not been able to get
his strength back'.
Stanton and his live in a 3 story home; bedroom is on the upper level and pt has his office in the basement. Bathrooms are on each level.
Home Health services were discussed and pt's chose [facility] after we reviewed the Medicare Compare ratings. 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
Referral to [facility]. is aware that they will be contacted by [facility] for start of care.
Plan: Discharge to home with [facility].
--- NOTE | 2024-12-10 12:45 | VNURNOTE ---
Hot Roll Laminator spoke with patient via phone to discuss [facility] nurse/therapy, visits, schedule and homebound status. Patient is agreeable and understands that visits at home will be 2-3 x per week to assess and teach medical management.
Patient is aware that [facility] will contact them for start of care in 1-2 days after discharge from .
[facility] referral completed in [facility].
--- NOTE | 2024-12-10 15:45 | W.DCSUMMARY ---
Discharge Summary
Discharge Data
Date of Admission: 12/10/24
Date of Discharge: 12/10/24
-
Pending Results: No
Hospital Course
Principal Diagnosis:
Worsening serum creatinine in setting of chronic kidney disease and history of kidney transplant x 2.
Anemia, possible S/E of Eligard and now dilutional effect
Chronic Diagnoses:�
End-stage renal disease with Kidney transplantation at age 27, second transplantation in 2007, on chronic antirejection. Baseline creatinine of around 1.5
Recent history of prostate cancer status post radiation and currently on Eligard
Crohn's disease currently in remission,
Hypertension,
Xzg-ojgepos-rfaqapzdh diabetes on Ozempic
Consultations:�
Nephrology
Procedures:�
None
Clinical course:�
This is a 59-year-old male with past medical history as stated above, who presented with worsening chronic anemia and increasing serum creatinine.
He was prompted by his box spinner to come to the emergency room.
Of note, he had recent URI symptoms and had received azithromycin. He has minimal respiratory symptoms this admission.
Problem 1:
Worsening serum creatinine in setting of chronic kidney disease and history of kidney transplant x 2.
His serum creatinine was at 2.5 on admission, which down trended to 2.2 following IV fluid. His baseline serum creatinine was at 1.5.
He was seen by nephrology and was cleared for discharge. He can check repeat BMP outpatient in 1 week with result to his PCP/box spinner.
Problem 2:
Anemia, possible S/E of Eligard and now dilutional effect.
His Ferritin was noted to be at 200, B12 WNL at 900.
He did receive 1 dose of IV iron while in the hospital.
Of note, pt had recent outpatient colonoscopic 1 year ago which was unrevealing.
His hemoglobin was at 9.0 on the day of discharge. He can check repeat CBC in 1 week with result to his PCP.
He has been informed to consider outpatient GI eval if his hemoglobin drops further.
As for the rest of his medical problems, they were stable during his hospital stay.
Discharge Plan
-
Patient Disposition: Home with Home Care
Discharge Diagnosis/Procedures: Recent URI symptoms;
Renal failure with history of kidney transplant x2;
Anemia (possible due to Eligard and now dilutional effect);
Condition: Fair
Diet: As tolerated and Other diet
Additional Diets: renal diet
Activity: As tolerated
Driving Restrictions: As prior to admission
Blood Work: CBC in 1 week with your PCP/box spinner
Referrals:
Shine Mcgrath MD [Family Provider] - in less than 1 week
Prescriptions:
Continued
prednisone 5 MG tablet
5 mg PO DAILY
cholecalciferol (vitamin D3) [Vitamin D3] 1,000 UNIT capsule
1,000 unit PO DAILY
Entyvio 300 MG/5 ML recon soln
300 mg IV Q8W
hydralazine 100 mg Tablet
100 mg PO BID
Rx Instructions:
sometimes take 3x/day
magnesium 250 mg Tablet
250 mg PO HS
B-complex with vitamin C Capsule
1 cap PO DAILY
acetaminophen [Tylenol] 325 mg Tablet
325 mg PO Q4HPRN PRN (Reason: mild pain)
therapeutic multivitamin Tablet
1 tab PO DAILY
chlorthalidone 25 mg tablet
25 mg PO DAILY
mycophenolate mofetil 500 mg tablet
500 mg PO BID
zinc acetate 50 mg (zinc) Capsule
50 mg PO QPM
turmeric 400 mg Capsule
400 mg PO DAILY
tacrolimus 1 mg Capsule
3 mg PO BID
Eligard (3 month) 22.5 mg Syringe
22.5 mg SC [id number]
Ozempic 1 mg/dose (4 mg/3 mL) Pen Injector
1 mg SC MARTINEZ
atorvastatin [Lipitor] 20 mg Tablet
20 mg PO HS
metoprolol succinate [Toprol XL] 100 mg Tablet Extended Release 24 Hr
100 mg PO BID
doxazosin 4 mg Tablet
4 mg PO HS
Discharge Orders:
Discharge Patient (As Directed); Ordered 12/10/24
Ordered By: Katarina Alcantar
Discharge Date and Time
Discharge Date/Time: 12/10/24 12:59
Print Language: UKRAINIAN
== END 2024-12-10 12:59 | disposition home health service (06) ==
LOC: ED 00:19
PROVIDERS: Emergency Medicine; ADMITTING PHYSICIAN Internal Medicine; ATTENDING PHYSICIAN Internal Medicine; CONSULT PHYSICIAN Internal Medicine; EMERGENCY PHYSICIAN Emergency Medicine; FAMILY PHYSICIAN Family Medicine
DX: R06.02 Shortness of breath (principal); R68.83 Chills (without fever); R53.83 Other fatigue; R53.1 Weakness; R53.81 Other malaise; D84.821 Immunodeficiency due to drugs; J06.9 Acute upper respiratory infection, unspecified; E09.9 Drug or chemical induced diabetes mellitus without complications; R68.89 Other general symptoms and signs; K50.90 Crohn's disease, unspecified, without complications; E78.00 Pure hypercholesterolemia, unspecified; K21.9 Gastro-esophageal reflux disease without esophagitis; D50.9 Iron deficiency anemia, unspecified; I10 Essential (primary) hypertension; K58.9 Irritable bowel syndrome, unspecified; T38.0X5A Adverse effect of glucocorticoids and synthetic analogues, initial encounter; Y92.9 Unspecified place or not applicable; Z94.0 Kidney transplant status; Z85.46 Personal history of malignant neoplasm of prostate; Z86.16 Personal history of COVID-19; Z92.3 Personal history of irradiation; Z92.21 Personal history of antineoplastic chemotherapy; Z88.2 Allergy status to sulfonamides; Z79.52 Long term (current) use of systemic steroids; Z79.624 Long term (current) use of inhibitors of nucleotide synthesis; Z79.621 Long term (current) use of calcineurin inhibitor; Z79.85 Long-term (current) use of injectable non-insulin antidiabetic drugs; Z11.52 Encounter for screening for COVID-19
CPT/HCPCS: 71046; 80048; 80053; 80197; 81003; 81015; 82550; 82607; 82728; 83540; 83550; 83605; 83690; 83735; 84443; 85025; 85027; 86140; 87040; 87502; 87811; J2916

== ENCOUNTER 2025-01-08 13:43 | Outpatient (RCR) | payer OTHER, SELFPAY ==
[2025-01-08 13:55] VITALS: BP 136/83
[2025-01-08] MEDS: NSS 250 IV (14:19)
[2025-01-08] MEDS: ENTYVIO 255 MG IV (14:20)
[2025-01-08 14:56] VITALS: BP 133/91
== END 2025-02-02 23:59 | disposition home or self-care (01) ==
LOC: OID 13:43
PROVIDERS: ATTENDING PHYSICIAN Internal Medicine Gastroenterology
DX: K50.90 Crohn's disease, unspecified, without complications (principal); N18.6 End stage renal disease; K50.10 Crohn's disease of large intestine without complications; Z94.0 Kidney transplant status; Z79.899 Other long term (current) drug therapy
CPT/HCPCS: 96365; J3380

== ENCOUNTER 2025-03-05 13:38 | Outpatient (RCR) | payer OTHER, SELFPAY ==
[2025-03-05 13:55] VITALS: BP 142/74
[2025-03-05] MEDS: ENTYVIO 255 MG IV ×2 (14:13→14:14)
[2025-03-05] MEDS: NSS 250 IV (14:14)
[2025-03-05 15:20] VITALS: BP 149/87
== END 2025-03-06 10:15 | disposition home or self-care (01) ==
LOC: OID 13:38
PROVIDERS: ATTENDING PHYSICIAN Internal Medicine Gastroenterology
DX: K50.10 Crohn's disease of large intestine without complications (principal); N18.6 End stage renal disease; Z94.0 Kidney transplant status; Z79.899 Other long term (current) drug therapy
CPT/HCPCS: 96361; 96365; J3380

== ENCOUNTER 2025-05-06 13:38 | Outpatient (RCR) | payer OTHER, SELFPAY ==
[2025-05-06] MEDS: NSS 250 IV (14:03)
[2025-05-06] MEDS: ENTYVIO 255 MG IV (14:03)
[2025-05-06 14:16] VITALS: BP 136/76
== END 2025-05-07 09:50 | disposition home or self-care (01) ==
LOC: OID 13:38
PROVIDERS: ATTENDING PHYSICIAN Internal Medicine Gastroenterology
DX: K50.90 Crohn's disease, unspecified, without complications (principal); N18.5 Chronic kidney disease, stage 5; N18.6 End stage renal disease; K50.10 Crohn's disease of large intestine without complications; Z94.0 Kidney transplant status; Z79.899 Other long term (current) drug therapy
CPT/HCPCS: 96361; 96365; J3380

== ENCOUNTER 2025-07-02 13:52 | Outpatient (RCR) | payer OTHER, SELFPAY ==
[2025-07-02 13:55] VITALS: BP 144/86
[2025-07-02] MEDS: ENTYVIO 255 MG IV (14:11)
[2025-07-02] MEDS: NSS 250 IV (14:11)
== END 2025-07-03 10:21 | disposition home or self-care (01) ==
LOC: OID 13:52
PROVIDERS: ATTENDING PHYSICIAN Internal Medicine Gastroenterology
DX: K50.90 Crohn's disease, unspecified, without complications (principal); N18.6 End stage renal disease; K50.10 Crohn's disease of large intestine without complications; Z94.0 Kidney transplant status; Z79.899 Other long term (current) drug therapy
CPT/HCPCS: 96365; J3380

== ENCOUNTER 2025-08-27 13:29 | Outpatient (RCR) | payer OTHER, SELFPAY ==
[2025-08-27 13:45] VITALS: BP 131/61
[2025-08-27] MEDS: NSS 250 IV (13:56)
[2025-08-27] MEDS: ENTYVIO 255 MG IV (13:58)
== END 2025-09-04 23:59 | disposition home or self-care (01) ==
LOC: OID 13:29
PROVIDERS: ATTENDING PHYSICIAN Internal Medicine Gastroenterology
DX: K50.90 Crohn's disease, unspecified, without complications (principal); N18.6 End stage renal disease; K50.10 Crohn's disease of large intestine without complications; Z94.0 Kidney transplant status; Z79.899 Other long term (current) drug therapy
CPT/HCPCS: 96365; J3380

== ENCOUNTER 2025-10-22 13:55 | Outpatient (RCR) | payer OTHER, SELFPAY ==
[2025-10-22] MEDS: NSS 250 IV (14:19)
[2025-10-22] MEDS: ENTYVIO 255 MG IV (14:19)
[2025-10-22 14:30] VITALS: BP 153/95
[2025-10-22 15:25] VITALS: BP 147/95
== END 2025-10-23 09:16 | disposition home or self-care (01) ==
LOC: OID 13:55
PROVIDERS: ATTENDING PHYSICIAN Internal Medicine Gastroenterology
DX: K50.90 Crohn's disease, unspecified, without complications (principal); N18.6 End stage renal disease; K50.10 Crohn's disease of large intestine without complications; Z94.0 Kidney transplant status; Z79.899 Other long term (current) drug therapy
CPT/HCPCS: 96361; 96365; J3380